=== PATIENT | female | born 1950 | race Two or more races ===

== ENCOUNTER 2024-07-06 12:39 | Emergency (ER) | payer OTHER ==
[~2024-07-06] VITALS: Ht 157.5 cm; Wt 65.8 kg
[2024-07-06] MEDS ORDERED: NORVASC2.5 MG PO (13:50)
[2024-07-06] MEDS ORDERED: LISINOPRIL-HCT1 EACH PO (13:50)
[2024-07-06] MEDS ORDERED: OMEPRAZOLE20 MG PO (13:50)
[2024-07-06 15:48] LABS: HEMATOCRIT 41.5 % (36.0-45.00); HEMOGLOBIN 13.9 g/dL (12.0-15.00); MEAN CELL VOLUME 95.5 fL (80.00-100.00); MEAN CORPUSCULAR HEMOGLOBIN 32.1 pg (27.00-32.0); MEAN CORPUSCULAR HGB CONC 33.6 g/dl (32.0-36.0); PLATELET COUNT 263 K/uL (150-450); RED BLOOD COUNT 4.34 M/uL (4.00-6.00); RED CELL DISTRIBUTION WIDTH 13.8 % (11.5-14.5)
[2024-07-06 16:05] LABS: CALCIUM 9.4 mg/dL (8.5-10.1); CREATININE SERUM 0.57 mg/dL (0.55-1.02); GFR 104.26; POTASSIUM 4.28 mEq/L (3.5-5.1)
[2024-07-06] MEDS ORDERED: GILTUSS COUGH-118 M1 PO (17:53)
[2024-07-06] MEDS ORDERED: PAXLOVID 150-11 EAC1 PO (17:53)
[2024-07-06] MEDS ORDERED: PEPCID AC20 MG PO (17:53)
== END 2024-07-06 18:42 | disposition home or self-care (01) ==
LOC: ER 12:41
PROVIDERS: General Practice
DX: U07.1 COVID-19 (principal); I10 Essential (primary) hypertension